=== PATIENT | female | born 1960 | race Caucasian/White ===

== ENCOUNTER 2019-05-10 11:09 | Emergency (ER) | payer BC, OTHER ==
[~2019-05-10] VITALS: Ht 165.1 cm; Wt 131.8 kg
[2019-05-10] MEDS ORDERED: ALBUTEROL SULFATE HFA 90 MCG/PUFF 8 GM INHALER IH ONE (12:30)
[2019-05-10 12:54] VITALS: BP 153/90
== END 2019-05-10 12:58 | disposition home or self-care (01) ==
LOC: EMS 11:13
DX: J45.909 Unspecified asthma, uncomplicated (principal); F41.9 Anxiety disorder, unspecified; F17.210 Nicotine dependence, cigarettes, uncomplicated; Z98.890 Other specified postprocedural states
CPT/HCPCS: 99406; J3535

== ENCOUNTER 2021-03-20 02:55 | Emergency (ER) | payer MEDICARE, OTHER ==
[~2021-03-20] VITALS: Ht 165.1 cm; Wt 120.5 kg
[2021-03-20 02:57] VITALS: BP 158/66
[2021-03-20] MEDS ORDERED: LORazepam 1 MG TABLET PO ONE (04:15)
== END 2021-03-20 05:07 | disposition home or self-care (01) ==
LOC: EMS 02:58
DX: F20.9 Schizophrenia, unspecified (principal); L30.4 Erythema intertrigo; F17.210 Nicotine dependence, cigarettes, uncomplicated; M19.90 Unspecified osteoarthritis, unspecified site; J44.9 Chronic obstructive pulmonary disease, unspecified; I10 Essential (primary) hypertension; E66.9 Obesity, unspecified
CPT/HCPCS: 99284; Z7502; Z7610

== ENCOUNTER 2021-08-03 16:17 | Emergency (ER) | payer MEDICARE, OTHER ==
[~2021-08-03] VITALS: Ht 165.1 cm; Wt 109.1 kg
[2021-08-03 17:29] VITALS: BP 174/94
== END 2021-08-03 19:28 | disposition home or self-care (01) ==
LOC: EMS 16:17
DX: F41.9 Anxiety disorder, unspecified (principal); J44.9 Chronic obstructive pulmonary disease, unspecified; I10 Essential (primary) hypertension; F20.9 Schizophrenia, unspecified; F17.210 Nicotine dependence, cigarettes, uncomplicated
CPT/HCPCS: 99281; 99283

== ENCOUNTER → 2022-07-05 | Outpatient (CLI) | payer MEDICARE, OTHER | END | disposition home or self-care (01) | LOC: RADMN 15:21 | PROVIDERS: ATTEND Podiatrist Foot & Ankle Surgery | DX: M19.072 Primary osteoarthritis, left ankle and foot (principal); M19.071 Primary osteoarthritis, right ankle and foot ==

== ENCOUNTER 2024-04-14 17:14 | Emergency (ER) | payer MEDICARE, OTHER ==
[~2024-04-14] VITALS: Ht 167.6 cm; Wt 122.7 kg
[~2024-04-14 17:14] MED LIST: ALBU18HF12 IH; AMLO-258 PO; CLON0.1T2 PO; GUAIFDM PO; LEVO750T68 PO; OLAN5TAB94 PO; PRED10TA3 PO
[2024-04-14 17:36] LABS: COVID AG,FIA SOURCE NASAL SWAB
[2024-04-14 17:39] VITALS: TEMP 98.2
[2024-04-14 18:21] LABS: INFLUENZA TYPE A NEGATIVE FOR TYPE A (NEGATIVE); INFLUENZA TYPE B NEGATIVE FOR TYPE B (NEGATIVE)
[2024-04-14 18:22] LABS: SARS-COV2 (COVID) ANTIGEN,FIA Positive (Negative)
[2024-04-14 19:09] LABS: BASOPHILS % (AUTO) 0.5 % (0.0-2.0); EOSINOPHILS % (AUTO) 2.6 % (1.0-6.0); HEMATOCRIT 41.5 % (36-46); HEMOGLOBIN 13.6 g/dL (12.0-16.0); LYMPHOCYTES # (AUTO) 1.1 K/uL (1.0-4.8); LYMPHOCYTES % (AUTO) 18.5 % (22.0-44.0); MEAN CORPUSCULAR HEMOGLOBIN 31.2 pg (26.0-34.0); MEAN CORPUSCULAR HGB CONC 32.7 G/dL (31.0-37.0); MEAN CORPUSCULAR VOLUME 95 fL (80-100); MONOCYTES # (AUTO) 0.8 K/uL (0.1-1.0); MONOCYTES % (AUTO) 14.2 % (2.0-9.0); NEUTROPHILS # (AUTO) 3.8 K/uL (1.8-7.7); NEUTROPHILS % (AUTO) 64.2 % (40.0-70.0); PLATELET COUNT (AUTO) 190 K/uL (150-450); RED BLOOD CELL COUNT(AUTO) 4.36 MIL/uL (4.00-5.20); RED CELL DISTRIBUTION WIDTH 14.1 % (11.5-14.5); WHITE BLOOD COUNT (AUTO) 5.9 K/uL (4.5-11.0)
[2024-04-14 19:16] LABS: CALCIUM, TOTAL 8.2 mg/dL (8.8-10.5); CREATININE 0.94 mg/dL (0.60-1.30)
[2024-04-14 19:23] LABS: TROPONIN I-HIGH SENSITIVITY 38 ng/L (<51)
[2024-04-14] MEDS ORDERED: LOSA-382 PO (20:09)
[2024-04-14] MEDS ORDERED: HYDR25TA84 PO (20:09)
[2024-04-14] MEDS ORDERED: FURO40TA5 PO (20:09)
[2024-04-14] MEDS ORDERED: AMLO5TAB66 PO (20:09)
[2024-04-14] MEDS: KETOROLAC TROMETHAMINE 30 MG/ML VIAL IVP ONE (20:17)
[2024-04-14] MEDS: CefTRIAXone 1 GM/DEXTROSE 50 ML IV ONE (20:59)
[2024-04-14] MEDS: DEXAMETHASONE SOD PHOS 4 MG/ML VIAL IVP ONE (21:00)
[2024-04-14] MEDS: DOXYCYCLINE HYCLATE 100 MG in DEXTROSE 5%-WATER 100 ML IV ONE (21:14)
[2024-04-14 22:31] VITALS: BP 124/70; PULSE 64; RESP 18; O2SAT 94
== END 2024-04-14 22:52 | disposition admitted as inpatient to this hospital (09) ==
LOC: EMS 17:14
DX: J96.01 Acute respiratory failure with hypoxia (principal); U07.1 COVID-19; J12.82 Pneumonia due to coronavirus disease 2019; J44.0 Chronic obstructive pulmonary disease with (acute) lower respiratory infection; I10 Essential (primary) hypertension; F20.9 Schizophrenia, unspecified; E66.9 Obesity, unspecified; F17.210 Nicotine dependence, cigarettes, uncomplicated; Z79.52 Long term (current) use of systemic steroids; Z79.899 Other long term (current) drug therapy; Z95.0 Presence of cardiac pacemaker
CPT/HCPCS: 99285; 96365; 96375; 71045; 87426; 80048; 83690; 83735; 83880; 84484; 85025; 87040; 87804; 36415; 93005; 96368; J0696; J1100; J3490; J1885; J7060